=== PATIENT | female | born 1960 | race Caucasian/White ===

== ENCOUNTER 2016-07-17 15:32 | Emergency (ER) | payer OTHER ==
[2016-07-17] MEDS ORDERED: IBUPROFEN 800 MG TABLET PO ONE (15:38)
--- NOTE | 2016-07-17 15:38 | ER Document Report ---
ED Medical Screen (RME) - General Stated Complaint: FEVER/HEAD PAIN Notes: Patient is a 56 to female presents with fever, headaches, body aches, decreased appetite, malaise for one week. sick contact at home. Did not receive a flu vaccine this year. Denies any cough, chest pain, congestion,, nausea, vomiting , abdominal pain, diarrhea or constipation. I have greeted and performed a rapid initial assessment of this patient. A comprehensive ED assessment and evaluation of the patient, analysis of test results and completion of the medical decision making process will be conducted by additional ED providers.
--- NOTE | 2016-07-17 16:24 | ER Document Report ---
ED Flu Like - General Chief Complaint: Fever Stated Complaint: FEVER/HEAD PAIN Mode of Arrival: Ambulatory Information source: Patient TRAVEL OUTSIDE OF THE [place] IN LAST 30 DAYS: No - HPI Onset: Other - 7 DAYS Timing/Duration: Persistent Quality of pain: Achy, Dull Severity: Mild CO exposure: No Tick/Insect bite: No: Confirmed, Suspected, Camping/Hiking, Other Shortness of breath: Mild Associated symptoms: Body/muscle aches, Chills, Fever, Headache, Hurts to breath , Sweating, Weakness. denies: Chest pain, Nonproductive cough, Productive cough , Leg swelling, Nausea, Vomiting Similar symptoms previously: No Recently seen / treated by doctor: No - Related Data Allergies/Adverse Reactions: No Known Allergies Allergy (Verified 07/17/16 15:36) Past Medical History - General Information source: Patient - Social History Smoking Status: Former Smoker Frequency of alcohol use: None Drug Abuse: None Lives with: Family Family History: Reviewed & Not Pertinent Patient has suicidal ideation: No Patient has homicidal ideation: No - Past Medical History Cardiac Medical History: Reports: None Pulmonary Medical History: Reports: None Denies: Hx Asthma, Hx Bronchitis EENT Medical History: Reports: None Neurological Medical History: Reports: None Endocrine Medical History: Reports: None Renal/ Medical History: Reports: None. Denies: Hx Peritoneal Dialysis Malignancy Medical History: Reports: None GI Medical History: Reports: None Musculoskeltal Medical History: Reports None Psychiatric Medical History: Reports: None Surgical Hx: Negative Review of Systems - Review of Systems Constitutional: See HPI EENT: No symptoms reported. denies: Throat pain, Difficulty swallowing Cardiovascular: No symptoms reported Respiratory: See HPI Gastrointestinal: No symptoms reported Genitourinary: No symptoms reported Female Genitourinary: denies: Musculoskeletal: No symptoms reported Skin: No symptoms reported Neurological/Psychological: Headaches Physical Exam - Vital signs Vitals: Temp Pulse Resp BP Pulse Ox 101.7 F H 114 H 16 114/66 94 07/17/16 15:36 07/17/16 15:36 07/17/16 15:36 07/17/16 15:36 07/17/16 15:36 Interpretation: Tachycardic, Febrile. No: Hypotensive, Hypoxic, Tachypneic - General General appearance: Appears well, Alert In distress: None - HEENT Head: Normocephalic Eyes: Normal Conjunctiva: Normal Ears: Normal Nasal: Normal Mouth/Lips: Normal Mucous membranes: Dry - MILDLY Pharynx: Normal Neck: Normal - Respiratory Respiratory status: No respiratory distress Breath sounds: Normal - Cardiovascular Rhythm: Regular Heart sounds: Normal auscultation Murmur: Yes - Abdominal Inspection: Normal Distension: No distension - Back Back: Normal, Nontender - Extremities General upper extremity: Normal inspection General lower extremity: Normal inspection. No: Tender, Edema - Neurological Neuro grossly intact: Yes Cognition: Normal Orientation: AAOx4 - Psychological Associated symptoms: Normal affect, Normal mood - Skin Skin Temperature: Hot Skin Moisture: Moist Skin Color: Normal Skin Turgor: Elastic Course - Vital Signs Vital signs: Temp Pulse Resp BP Pulse Ox 101.7 F H 114 H 16 114/66 94 07/17/16 15:37 07/17/16 15:37 07/17/16 16:57 07/17/16 15:37 07/17/16 15:37 - Laboratory Result Diagrams: 07/17/16 17:42 Laboratory results interpreted by me: 07/17/16 07/17/16 17:24 17:42 Hgb 11.5 L Hct 32.9 L Plt Count 74 L Seg Neutrophils % 83.1 H Urine Protein >=500 H Urine Ketones 20 H Urine Bilirubin SMALL H Urine Urobilinogen 2.0 H Ur Leukocyte Esterase TRACE H Discharge - Discharge Clinical Impression: Viral illness, Dehydration Condition: Stable Disposition: HOME, SELF-CARE Instructions: Acetaminophen, Viral Syndrome ([facility]), Dehydration ([facility]) Additional Instructions: REST, DRINK PLENTY OF FLUIDS. TAKE TYLENOL OR IBUPROFEN FOR FEVER CONTROL. FOLLOW UP WITH YOUR PRIMARY CARE PROVIDER OR RETURN TO E.R. IF PROBLEMS, ANY TIME.
[2016-07-17 17:43] LABS: APPEARANCE,URINE CLOUDY; BILIRUBIN,URINE SMALL (NEGATIVE); GLUCOSE, URINE NEGATIVE (NEGATIVE); KETONES,URINE 20 mg/dL (NEGATIVE); LEUKOCYTE ESTERASE,URINE TRACE (NEGATIVE); NITRITE,URINE NEGATIVE (NEGATIVE); PROTEIN,URINE >=500 mg/dL (NEGATIVE); URINE SPECIFIC GRAVITY 1.033
[2016-07-17 18:05] LABS: ABSOLUTE LYMPHOCYTES (AUTO) 0.6 10^3/uL (0.5-4.7); ABSOLUTE MONOCYTES (AUTO) 0.1 10^3/uL (0.1-1.4); ABSOLUTE NEUT (AUTO) 3.5 10^3/uL (1.7-8.2); BASOPHILS % (AUTO) 0.4 % (0-2); HEMATOCRIT 32.9 % (36.0-47.0); HEMOGLOBIN 11.5 g/dL (12.0-15.5); HGB HCT DIFFERENCE 1.6; MEAN CORPUSCULAR HEMOGLOBIN 30.7 pg (27.0-33.4); MEAN CORPUSCULAR VOLUME 88 fl (80-97); MONOCYTES % (AUTO) 3.5 % (3-13); RED BLOOD COUNT 3.74 10^6/uL (3.72-5.28); RED CELL DISTRIBUTION WIDTH 12.9 % (11.5-14.0); SEGMENTED NEUTROPHILS % (AUTO) 83.1 % (42-78); WHITE BLOOD COUNT 4.3 10^3/uL (4.0-10.5)
[2016-07-17 19:10] VITALS: BP 126/82
== END 2016-07-17 19:09 | disposition home or self-care (01) ==
LOC: ER 15:32
DX: B34.9 Viral infection, unspecified (principal); E86.0 Dehydration; R51 Headache; R50.9 Fever, unspecified; Z87.891 Personal history of nicotine dependence
CPT/HCPCS: 36415; 81001; 85025; 87804; 99283